=== PATIENT | female | born 2000 | race Two or more races ===

== ENCOUNTER 2023-11-14 03:36 | Emergency (ER) | payer OTHER ==
[~2023-11-14] VITALS: Ht 162.6 cm; Wt 83.9 kg
[2023-11-14] MEDS ORDERED: PRENATAL + DHA1 EAC1 (03:40)
[2023-11-14] MEDS ORDERED: METOCLOPRAMIDE HCL 5 MG/ML VIAL IM STA (04:38)
[2023-11-14] MEDS ORDERED: ACETAMINOPHEN 500 MG GEL..CAP PO STA (04:39)
== END 2023-11-14 05:07 | disposition home or self-care (01) ==
LOC: ER 03:37
DX: O26.891 Other specified pregnancy related conditions, first trimester (principal); Z3A.10 10 weeks gestation of pregnancy; G43.809 Other migraine, not intractable, without status migrainosus

== ENCOUNTER 2024-03-31 10:28 | Outpatient (CLI) | payer OTHER ==
[~2024-03-31 10:28] MED LIST: PRENATAL + DHA1 EAC1
== END 2024-03-31 16:56 | disposition home or self-care (01) ==
LOC: OBS/DEL 10:28
PROVIDERS: ATTEND Specialist
DX: O36.8130 Decreased fetal movements, third trimester, not applicable or unspecified (principal); Z3A.32 32 weeks gestation of pregnancy; Z37.9 Outcome of delivery, unspecified; O44.00 Complete placenta previa NOS or without hemorrhage, unspecified trimester; O60.00 Preterm labor without delivery, unspecified trimester

== ENCOUNTER 2024-04-29 01:03 | Outpatient (CLI) | payer OTHER ==
[2024-04-29] MEDS ORDERED: RINGERS SOLUTION,LACTATED 1,000 ML IV SCH (01:30)
[2024-04-29] MEDS ORDERED: AMPICILLIN SODIUM 1,000 MG VIAL IV SCH (01:30)
[2024-04-29] MEDS ORDERED: AMPICILLIN SODIUM 1,000 MG VIAL ONE ×2 (01:45→05:04)
[2024-04-29 02:16] LABS: URINE APPEARANCE Clear; URINE BILIRRUBIN Negative (NEGATIVE); URINE BLOOD Negative; URINE COLOR Yellow; URINE GLUCOSE Negative (NEGATIVE); URINE KETONE Negative (NEGATIVE); URINE LEUKOCYTE Negative; URINE NITRATE Negative; URINE PROTEIN Trace (NEGATIVE); URINE UROBILINOGEN 0.2 E.U./dl
[2024-04-29 02:20] LABS: URINE BACTERIA 78.1 uL (0.0-1933); URINE EPITHELIAL CELLS 16.3 uL (0.0-38.8); URINE RBC 2.1 uL (0.0-20.8); URINE WBC 7.2 uL (0.0-23.2)
[2024-04-29 02:30] LABS: MEAN CELL VOLUME 83.6 fL (80.00-100.00); PLATELET COUNT 162 K/uL (150-450); RED BLOOD COUNT 4.07 M/uL (4.00-6.00); RED CELL DISTRIBUTION WIDTH 13.4 % (11.5-14.5)
[2024-04-29 02:39] LABS: HEMOGLOBIN 11.6 g/dL (12.0-15.00); MEAN CORPUSCULAR HEMOGLOBIN 28.5 pg (27.00-32.0)
[2024-04-29 02:40] LABS: URINE CAST 0.45 uL (0.0-1.40)
[2024-04-29 02:44] LABS: INR < 0.93; PARTIAL THROMBOPLASTIN TIME 26.2 SECONDS (22.0-34.0); PROTHROMBIN TIME 10.2 SECONDS (9.0-11.5)
[2024-04-29 02:49] LABS: ALBUMIN 2.6 gm/dL (3.4-5.0); BILIRUBIN TOTAL 0.26 mg/dL (0.3-1.2); CREATININE SERUM 0.78 mg/dL (0.55-1.02); GFR 91.52; GLOBULINA 2.8 G/DL (2.4-3.5); POTASSIUM 4.17 mEq/L (3.5-5.1); TOTAL PROTEIN 5.4 gm/dL (6.4-8.2)
[2024-04-29] MEDS ORDERED: AMPICILLIN TRI500 MG PO (03:09)
== END 2024-04-29 08:27 | disposition home or self-care (01) ==
LOC: OBS/DEL 01:03
PROVIDERS: ATTEND Specialist
DX: O26.893 Other specified pregnancy related conditions, third trimester (principal); Z3A.34 34 weeks gestation of pregnancy

== ENCOUNTER 2024-05-19 20:22 | Inpatient (IN) | payer OTHER ==
[~2024-05-19] VITALS: Ht 162.6 cm; Wt 108.9 kg
[2024-05-19 20:00] VITALS: BP 170/110
[~2024-05-19 20:22] MED LIST changes: +AMPICILLIN TRI500 MG PO
[2024-05-19] MEDS ORDERED: MAGNESIUM SULFATE IN WATER 0.04 GM/ML IV.SOLN IV ONE (20:43)
[2024-05-19] MEDS ORDERED: MAGNESIUM SULFATE IN WATER 500 ML IV SCH (21:00)
[2024-05-19] MEDS ORDERED: RINGERS SOLUTION,LACTATED 1,000 ML IV SCH (21:00)
[2024-05-19] MEDS ORDERED: ACETAMINOPHEN 500 MG GEL..CAP PO PRN (21:00)
[2024-05-19] MEDS ORDERED: MAGNESIUM SULFATE IN WATER 100 ML IV ONE (21:00)
[2024-05-19 21:21] LABS: HEMATOCRIT 32.6 % (36.0-45.00); HEMOGLOBIN 11.2 g/dL (12.0-15.00); MEAN CELL VOLUME 84.6 fL (80.00-100.00); MEAN CORPUSCULAR HEMOGLOBIN 29.1 pg (27.00-32.0); MEAN CORPUSCULAR HGB CONC 34.4 g/dl (32.0-36.0); RED BLOOD COUNT 3.86 M/uL (4.00-6.00); RED CELL DISTRIBUTION WIDTH 13.7 % (11.5-14.5)
[2024-05-19 21:22] LABS: URINE APPEARANCE Cloudy; URINE BACTERIA 4601.4 uL (0.0-1933); URINE BILIRRUBIN Small (NEGATIVE); URINE BLOOD Moderate; URINE COLOR Dark Yellow; URINE GLUCOSE Negative (NEGATIVE); URINE KETONE Trace (NEGATIVE); URINE LEUKOCYTE Trace; URINE NITRATE Negative; URINE PROTEIN >=1000 (NEGATIVE); URINE RBC 22.9 uL (0.0-20.8); URINE UROBILINOGEN 0.2 E.U./dl; URINE WBC 33.3 uL (0.0-23.2)
[2024-05-19 21:40] LABS: PLATELET COUNT 105 K/uL (150-450)
[2024-05-19 21:46] LABS: INR < 0.93; PARTIAL THROMBOPLASTIN TIME 27.8 SECONDS (22.0-34.0)
[2024-05-19 21:51] LABS: ALBUMIN 2.5 gm/dL (3.4-5.0); BILIRUBIN TOTAL 0.58 mg/dL (0.3-1.2); CALCIUM 9.1 mg/dL (8.5-10.1); CREATININE SERUM 1.11 mg/dL (0.55-1.02); GFR 60.91; GLOBULINA 2.8 G/DL (2.4-3.5); POTASSIUM 4.57 mEq/L (3.5-5.1); TOTAL PROTEIN 5.3 gm/dL (6.4-8.2); URINE CAST > 21.83 uL (0.0-1.40)
[2024-05-19 22:33] VITALS: BP 170/100; O2SAT 100
[2024-05-19 23:09] VITALS: BP 151/92
[2024-05-20] VITALS (7 sets, daily range): BP systolic 137–162; BP diastolic 91–115; O2SAT 100
[2024-05-20] MEDS ORDERED: ERYTHROMYCIN BASE OPHT 1GM EACH TUBE OP ONE ×2 (07:33→10:15)
[2024-05-20] MEDS ORDERED: OXYTOCIN 10 UNITS/ML VIAL ONE (07:33)
[2024-05-20] MEDS ORDERED: CHLORHEXIDINE GLUCONATE 120 ML BOTTLE TOP ONE ×2 (07:34→10:15)
[2024-05-20] MEDS ORDERED: CEFAZOLIN SODIUM 1,000 MG VIAL ONE (07:34)
[2024-05-20] MEDS ORDERED: AMPICILLIN SODIUM 2,000 MG VIAL ONE (07:39)
[2024-05-20] MEDS ORDERED: AMPICILLIN SODIUM 2,000 MG VIAL IV STA (07:49)
[2024-05-20] MEDS ORDERED: PROMETHAZINE HCL 50 MG/ML AMPUL IM PRN (09:00)
[2024-05-20] MEDS ORDERED: MEPERIDINE HCL/PF 50 MG/ML VIAL IM PRN (09:00)
[2024-05-20] MEDS ORDERED: MORPHINE SULFATE 4 MG/ML VIAL IV ONE ×3 (09:50→10:50)
[2024-05-20] MEDS ORDERED: MAGNESIUM SULFATE IN WATER 0.04 GM/ML IV.SOLN IV ONE (10:01)
[2024-05-20] MEDS ORDERED: OXYTOCIN 10 UNITS/ML VIAL IV ONE (10:15)
[2024-05-20] MEDS ORDERED: LABETALOL HCL 200 MG TABLET PO SCH (12:14)
[2024-05-20] MEDS ORDERED: CEFAZOLIN SODIUM 1,000 MG VIAL IV SCH (14:00)
[2024-05-20] MEDS ORDERED: hydrALAZINE HCL 20 MG VIAL ONE (15:44)
[2024-05-20] MEDS ORDERED: hydrALAZINE HCL 20 MG VIAL IV STA (16:03)
[2024-05-20] MEDS ORDERED: hydrALAZINE HCL 20 MG VIAL IV ONE (23:30)
[2024-05-21 02:14] LABS: HEMATOCRIT 32.2 % (36.0-45.00); HEMOGLOBIN 11.4 g/dL (12.0-15.00); MEAN CELL VOLUME 84.6 fL (80.00-100.00); MEAN CORPUSCULAR HEMOGLOBIN 29.9 pg (27.00-32.0); MEAN CORPUSCULAR HGB CONC 35.4 g/dl (32.0-36.0); PLATELET COUNT 46 K/uL (150-450); RED CELL DISTRIBUTION WIDTH 13.9 % (11.5-14.5)
[2024-05-21 02:45] LABS: BILIRUBIN TOTAL 2.24 mg/dL (0.3-1.2); CALCIUM 7.8 mg/dL (8.5-10.1); CREATININE SERUM 1.07 mg/dL (0.55-1.02); GFR 63.55; GLOBULINA 2.3 G/DL (2.4-3.5); POTASSIUM 4.51 mEq/L (3.5-5.1); TOTAL PROTEIN 4.3 gm/dL (6.4-8.2)
[2024-05-21 03:06] VITALS: BP 109/72
[2024-05-21 06:37] VITALS: BP 134/86; O2SAT 97
[2024-05-21] MEDS ORDERED: HYPERRHO S-1500 UNIT IM (06:37)
[2024-05-21] MEDS ORDERED: OxyCODONE HCL/APAP UD (PERCOCET) PO PRN (06:45)
[2024-05-21] MEDS ORDERED: FF) RHO(D) IMMUNE GLOBULIN (POM) IM NR (12:00)
[2024-05-21 12:13] VITALS: BP 150/80
[2024-05-21 18:08] VITALS: BP 150/90
[2024-05-22] VITALS: BP 130/80
[2024-05-22 16:55] VITALS: BP 150/100
[2024-05-22 18:40] VITALS: BP 145/110
[2024-05-22] MEDS ORDERED: hydrALAZINE HCL 20 MG VIAL IV STA (18:55)
[2024-05-22 22:30] VITALS: BP 130/90
[2024-05-23 01:00] VITALS: BP 140/80
[2024-05-23] MEDS ORDERED: LABETALOL HCL200 MG PO (09:48)
[2024-05-23] MEDS ORDERED: IBUPROFEN800 MG PO (09:48)
[2024-05-23 11:28] VITALS: BP 130/82
== END 2024-05-23 14:50 | disposition home or self-care (01) | DRG 788 ==
LOC: OB/GYN 20:22 → LDR 20:22 → OB/GYN 05-21 08:30
PROVIDERS: ADMIT Specialist; ATTEND Specialist
PROC: BY4FZZZ Ultrasonography of Third Trimester, Single Fetus (ICD-10-PCS; 2024-05-19)
PROC: 4A1HXCZ Monitoring of Products of Conception, Cardiac Rate, External Approach (ICD-10-PCS; 2024-05-19)
PROC: 10D00Z1 Extraction of Products of Conception, Low, Open Approach (ICD-10-PCS; principal; 2024-05-20 09:00)
DX: O14.24 HELLP syndrome, complicating childbirth (principal); O99.824 Streptococcus B carrier state complicating childbirth; Z3A.37 37 weeks gestation of pregnancy; Z37.0 Single live birth; Z20.822 Contact with and (suspected) exposure to COVID-19